=== PATIENT | female | born 1975 | race Caucasian/White ===

== ENCOUNTER 2025-10-28 10:06 | Outpatient (CLI) | payer BC ==
[2025-10-28 10:58] LABS: Hematocrit 31.9 % (34.9-44.5); Hemoglobin 10.2 g/dL (12.0-15.5); Mean Corpuscular Hemoglobin 24.5 pg (27.0-33.0); Mean Corpuscular Volume 76.5 fL (81.6-98.3); Platelet Count 319 10x3/uL (150-450); Red Blood Cell (RBC) Count 4.17 10x6/uL (3.90-5.03); White Blood Cell (WBC) Count 6.41 10x3/uL (3.5-10.5)
[2025-10-28 11:09] LABS: BHCG - Serum Negative (NEGATIVE); Pregs Control Background? CLEAR/WHITE (CLR/WHITE); Pregs Control Bar Appear? YES (CONTROL BAR)
[2025-10-28 12:13] LABS: Anion Gap 13 mmol/L (10-20); BUN (Urea Nitrogen) 15 mg/dL (7.0-18.7); Calc. Creatinine Clearance 0 mL/min (70-130); Calcium 8.8 mg/dL (7.8-10.44); Carbon Dioxide 22 mmol/L (22-29); Chloride 107 mmol/L (98-107); Glucose 100 mg/dL (70-105); Potassium 4.5 mmol/L (3.5-5.1); Sodium 137 mmol/L (136-145)
== END 2025-10-28 10:07 | disposition home or self-care (01) ==
LOC: CSHLAB 10:06
PROVIDERS: ATTEND Obstetrics & Gynecology
DX: Z01.812 Encounter for preprocedural laboratory examination (principal); N80.129 Deep endometriosis of ovary, unspecified ovary; N81.6 Rectocele
CPT/HCPCS: 36415; 80048; 84703; 85027; 86850; 86900; 86901

== ENCOUNTER 2025-10-28 10:15 | Inpatient (IN) | payer BC ==
[2025-10-28 10:58] LABS: Hematocrit 31.9 % (34.9-44.5); Hemoglobin 10.2 g/dL (12.0-15.5); Mean Corpuscular Hemoglobin 24.5 pg (27.0-33.0); Mean Corpuscular Volume 76.5 fL (81.6-98.3); Platelet Count 319 10x3/uL (150-450); Red Blood Cell (RBC) Count 4.17 10x6/uL (3.90-5.03); White Blood Cell (WBC) Count 6.41 10x3/uL (3.5-10.5)
[2025-10-28 11:09] LABS: BHCG - Serum Negative (NEGATIVE); Pregs Control Background? CLEAR/WHITE (CLR/WHITE); Pregs Control Bar Appear? YES (CONTROL BAR)
[2025-10-28 12:13] LABS: Anion Gap 13 mmol/L (10-20); BUN (Urea Nitrogen) 15 mg/dL (7.0-18.7); Calc. Creatinine Clearance 0 mL/min (70-130); Calcium 8.8 mg/dL (7.8-10.44); Carbon Dioxide 22 mmol/L (22-29); Chloride 107 mmol/L (98-107); Glucose 100 mg/dL (70-105); Potassium 4.5 mmol/L (3.5-5.1); Sodium 137 mmol/L (136-145)
[2025-11-02] MEDS ORDERED: metroNIDAZOLE 500 MG (100 mL) BAG ONE (11:11)
[2025-11-02] MEDS ORDERED: Gabapentin 300 MG CAP ONE (11:11)
[2025-11-02] MEDS ORDERED: Famotidine/PF 20 mg/2ml Vial ONE (11:12)
[2025-11-02] MEDS ORDERED: Ketorolac Tromethamine 30 MG (1 mL) VIAL ONE ×2 (11:14→13:25)
[2025-11-02] MEDS ORDERED: PROPOFOL 20 ML ONE (11:14)
[2025-11-02] MEDS ORDERED: Rocuronium Bromide 10 MG/ML (10ML VIAL) ONE (11:14)
[2025-11-02] MEDS ORDERED: Ondansetron PF 4 MG/2 ML Vial ONE (11:14)
[2025-11-02] MEDS ORDERED: Bupivacaine HCl 0.5%/Epinephrine 1:200,000/PF 30 ml Vial ONE (13:15)
[2025-11-02] MEDS ORDERED: PHENYLEPHRINE-NS 100 MCG/ML 10 ML SYRINGE ONE ×2 (14:55→15:00)
[2025-11-02] MEDS ORDERED: Ondansetron PF 4 MG/2 ML Vial IVP PRN (16:02)
[2025-11-02] MEDS ORDERED: hydrALAZINE 20 MG/ML VIAL SLOW IVP PRN (16:02)
[2025-11-02] MEDS ORDERED: SUGAMMADEX SODIUM 200 MG/2 ML VIAL ONE (16:04)
[2025-11-02] MEDS ORDERED: Estradiol 0.01% Vaginal Cream 42.5 gm Tube VAG SCH (16:15)
[2025-11-02] MEDS: Ketorolac Tromethamine 30 MG (1 mL) VIAL IVP SCH (18:40)
[2025-11-02] MEDS: Acetaminophen 325 MG TAB PO SCH (18:41)
[2025-11-03 03:29] VITALS: BMI 24.7
[2025-11-03 03:47] LABS: #Basophils Less than 0.03 10x3/uL (0.0-0.2); #Eosinophils Less than 0.03 10x3/uL (0.0-0.5); #Monocytes 1.44 10x3/uL (0.0-1.1); #Neutrophils 17.88 10x3/uL (1.5-8.4); %Basophils 0.0 % (0.0-2.0); %Eosinophils 0.0 % (0.0-6.0); %Lymphocytes 3.6 % (18.0-47.0); %Monocytes 7.1 % (0.0-10.0); %Neutrophils 88.9 % (40.0-75.0); Hematocrit 26.8 % (34.9-44.5); Hemoglobin 8.6 g/dL (12.0-15.5); Mean Corpuscular Hemoglobin 24.5 pg (27.0-33.0); Mean Corpuscular Volume 76.4 fL (81.6-98.3); Platelet Count 283 10x3/uL (150-450); Red Blood Cell (RBC) Count 3.51 10x6/uL (3.90-5.03); White Blood Cell (WBC) Count 20.15 10x3/uL (3.5-10.5)
[2025-11-03 04:00] LABS: Anion Gap 13 mmol/L (10-20); BUN (Urea Nitrogen) 6 mg/dL (7.0-18.7); Calc. Creatinine Clearance 112 mL/min (70-130); Calcium 8.2 mg/dL (7.8-10.44); Carbon Dioxide 21 mmol/L (22-29); Chloride 107 mmol/L (98-107); Glucose 153 mg/dL (70-105); Potassium 4.0 mmol/L (3.5-5.1); Sodium 137 mmol/L (136-145)
[2025-11-03] MEDS: Enoxaparin 40 MG (0.4 mL) SYRINGE SC SCH (08:46)
[2025-11-04] MEDS: Milk Of Magnesia 30 ML UDCUP PO SCH (10:38)
[2025-11-04 11:51] VITALS: BP 138/83; TEMP 97.5
[2025-11-05] MEDS ORDERED: Ibuprofen 800 MG TAB PO PRN (19:31)
== END 2025-11-04 14:00 | disposition home or self-care (01) | DRG 331 ==
LOC: EDSTATUS 11-02 10:15 → CSHTELE 11-02 10:54 → CSHPP 11-02 18:27
PROVIDERS: ADMIT Obstetrics & Gynecology; ATTEND Obstetrics & Gynecology
PROC: 0DBN4ZZ Excision of Sigmoid Colon, Percutaneous Endoscopic Approach (ICD-10-PCS; principal; 2025-11-02)
PROC: 0UT94ZZ Resection of Uterus, Percutaneous Endoscopic Approach (ICD-10-PCS; 2025-11-02)
PROC: 0UT24ZZ Resection of Bilateral Ovaries, Percutaneous Endoscopic Approach (ICD-10-PCS; 2025-11-02)
PROC: 0UB74ZZ Excision of Bilateral Fallopian Tubes, Percutaneous Endoscopic Approach (ICD-10-PCS; 2025-11-02)
PROC: 8E0W4CZ Robotic Assisted Procedure of Trunk Region, Percutaneous Endoscopic Approach (ICD-10-PCS; 2025-11-02)
PROC: 0JQC3ZZ Repair Pelvic Region Subcutaneous Tissue and Fascia, Percutaneous Approach (ICD-10-PCS; 2025-11-02)
DX: N80.50 Endometriosis of intestine, unspecified (principal); N81.6 Rectocele; N81.10 Cystocele, unspecified; N80.03 Adenomyosis of the uterus; N80.33 Superficial endometriosis of the pelvic sidewall; N94.6 Dysmenorrhea, unspecified
CPT/HCPCS: 36415; 36416; 80048; 84703; 85025; 85027; 86850; 86900; 86901; 88307; 88309; C1776; J1100; J1308; J1650; J1885; J2250; J2270; J2405; J2704; J3010; S2900